=== PATIENT | female | born 1995 | race Caucasian/White ===

== ENCOUNTER 2016-04-25 21:59 | Emergency (ER) | payer OTHER ==
[~2016-04-25] VITALS: Ht 157.5 cm; Wt 95.7 kg
--- NOTE | 2016-04-25 22:52 | ED GI/GU/ABDOMINAL COMPLAINT ---
History of Present Illness General Chief Complaint: General Adult Stated Complaint: PT IS HERE FOR STOMACH PAINS Source: patient, family Exam Limitations: no limitations Vital Signs & Intake/Output Vital Signs & Intake/Output Vital Signs Date Time Temp Pulse Resp B/P Pulse O2 O2 Flow FiO2 Ox Delivery Rate 04/26 0006 98.0 91 18 119/61 100 Room Air 04/25 2300 100 Room Air 04/25 2224 98.0 103 18 122/73 98 Room Air ED Intake and Output 04/26 0000 04/25 1200 Intake Total Output Total Balance Patient 211 lb Weight Allergies Coded Allergies: azithromycin (From ZITHROMAX Z-NALDO) (HIVES 04/25/16) Reconcile Medications Ibuprofen 800 MG TABLET 1 TAB PO Q8 PRN PAIN Ondansetron (Zofran Odt) 4 MG TAB.RAPDIS 1 TAB SL TID PRN nausea Triage Note: PT TO ED C/O MID ABDOMINAL PRASH, "FIRMNESS" WITH +N/V SINCE YESTERDAY. UNSURE OF . DENIES UTI S/S Triage Nurses Notes Reviewed? yes ? n Is pt currently ? No HPI: Patient is a 20-year-old female presents complaining of abdominal pressure and firmness. Pain is diffuse, onset yesterday. Pain is currently 7 out of 10, patient is unsure if pain worsens with eating. Patient took ibuprofen at 2 PM today with mild improvement. Patient took Tums 1-2 hours ago with mild improvement. Patient has had 3-4 episodes of diarrhea since this morning. Positive associated nausea. Last menstrual period was 04/03/2016. Patient denies sick contacts, suspicious food intake, fevers, chills, urinary symptoms. (VIKA VALERIO) Past History Travel History Traveled to [place] past 21 day No Medical History Any Pertinent Medical History? see below for history Respiratory: bronchitis Renal: UTI Musculoskeletal: clubfoot Surgical History Surgical History: clubfoot surgery Psychosocial History What is your primary language Nepali Tobacco Use: Quit >30 days ago ETOH Use: occasional use Illicit Drug Use: denies illicit drug use Family History Hx Contributory? No (VIKA VALERIO) Review of Systems Review of Systems Constitutional: Denies: chills, fever. EENTM: Reports: no symptoms. Respiratory: Denies: cough, short of breath. Cardiovascular: Denies: chest pain. GI: Reports: see HPI. Genitourinary: Denies: dysuria, frequency, hematuria. Musculoskeletal: Denies: back pain. Skin: Reports: no symptoms. Neurological/Psychological: Reports: no symptoms. Hematologic/Endocrine: Reports: no symptoms. Immunologic/Allergic: Reports: no symptoms. (VIKA VALERIO) Physical Exam Physical Exam General Appearance: well developed/nourished, alert, awake Head: atraumatic, normal appearance Eyes: Bilateral: normal appearance, PERRL, EOMI. Ears, Nose, Throat, Mouth: hearing grossly normal, moist mucous membrane Neck: normal inspection, supple, full range of motion Respiratory: normal breath sounds, chest non-tender, no respiratory distress, lungs clear Cardiovascular: regular rate/rhythm Gastrointestinal: normal bowel sounds, soft, mild diffuse abdominal tenderness. Negative Castillo's sign, negative McBurney's point tenderness, negative psoas or obturator sign Back: normal inspection, normal range of motion Extremities: normal range of motion, evidence of injury Neurologic/Psych: no motor/sensory deficits, awake, alert, oriented x 3, normal gait, normal mood/affect Skin: intact, normal color, warm/dry Core Measures ACS in differential dx? No Severe Sepsis Present: No Septic Shock Present: No (VIKA VALERIO) Progress Differential Diagnosis: appendicitis, biliary colic, bowel obstruction, cholecystitis, diverticulitis, ectopic , endometritis, gastritis, hepatitis, hernia, inflamm bowel dis, intrauterine , kidney stone, ovarian cyst, ovarian torsion, pancreatitis, peptic ulcer, PUD/GERD, perforated viscous, SBO, UTI/pyelo Plan of Care: Orders Procedure Date/time Status LIPASE 04/25 2249 Complete COMPREHENSIVE METABOLIC PANEL 04/25 2249 Complete CBC WITHOUT DIFFERENTIAL 04/25 2249 Complete AMYLASE 04/25 2249 Complete URINE 04/25 2226 Complete URINALYSIS 04/25 2226 Complete Laboratory Tests 04/25/16 2315: Anion Gap 10, Estimated GFR > 60, BUN/Creatinine Ratio 13.3, Glucose 80, Calcium 9.3, Total Bilirubin 0.7, AST 40 H, ALT 53 H, Alkaline Phosphatase 49, Total Protein 7.5, Albumin 4.2, Globulin 3.3, Albumin/Globulin Ratio 1.3, Amylase < 30 L, Lipase 42, CBC w Diff NO MAN DIFF REQ, RBC 4.84, MCV 86.1, MCH 29.2, RDW 12.9, MPV 9.1, Gran % 74.8, Lymphocytes % 17.2 L, Monocytes % 7.1, Eosinophils % 0.7, Basophils % 0.2, Absolute Granulocytes 7.2 H, Absolute Lymphocytes 1.6, Absolute Monocytes 0.7 H, Absolute Eosinophils 0.1, Absolute Basophils 0, PUBS MCHC 33.8 04/25/16 2252: Urine Color YEL, Urine Clarity HAZY H, Urine pH 6.5, Ur Specific [place] 1.020, Urine Protein TRACE H, Urine Ketones TRACE H, Urine Nitrite NEG, Urine Bilirubin NEG, Urine Urobilinogen 4.0 H, Ur Leukocyte Esterase NEG, Ur Microscopic SEDIMENT EXAMINED, Urine RBC FEW H, Urine WBC RARE, Ur Epithelial Cells MANY H, Urine Mucus MOD H, Urine Hemoglobin NEG, Urine Glucose NEG, Urine Test NEGATIVE 04/25/2016 11:49:48 PM: Nausea and abdominal pain significantly improved. Patient tolerating oral fluids appropriately. Abdomen reexamined, nontender throughout. Negative Castillo sign, negative McBurney's point tenderness. Abdominal imaging deferred secondary to exam and work-up (VIKA VALERIO) Initial ED EKG: none (VIKA VALERIO) Departure Departure Time of Disposition: 2349 Disposition: HOME OR SELF CARE Condition: Stable Clinical Impression Primary Impression: Abdominal pain Qualifiers: Abdominal location: generalized Qualified Code: R10.84 - Generalized abdominal pain Referrals: UNKNOWN (PCP/Family) Additional Instructions: Follow-up with her primary care doctor if no improvement by Thursday. Return to the emergency department if you develop fevers, pain localizes to the right lower abdomen, unable to stay hydrated, or worsening of symptoms. Departure Forms: Customer Survey General Discharge Information Prescriptions: Current Visit Scripts Ondansetron (Zofran Odt) 1 TAB SL TID PRN nausea #10 TAB Ibuprofen 1 TAB PO Q8 PRN PAIN #20 TAB (VIKA VALERIO) PA/TURNING MACHINE OPERATOR Co-Sign Statement Statement: ED Attending supervision documentation- [] I saw and evaluated the patient. I have also reviewed all the pertinent lab results and diagnostic results. I agree with the findings and the plan of care as documented in the PA's/TURNING MACHINE OPERATOR's documentation. [X] I have reviewed the ED Record and agree with the PA's/TURNING MACHINE OPERATOR's documentation. [] Additions or exceptions (if any) to the PAs/TURNING MACHINE OPERATOR's note and plan are summarized below: [] (KARUNA SR,DARLING Santiago)
[2016-04-25 23:29] LABS: ABSOLUTE BASOPHIL COUNT 0 /CUMM (0.0-0.2); ABSOLUTE EOSINOPHIL COUNT 0.1 /CUMM (0.0-0.7); ABSOLUTE GRANULOCYTE CT 7.2 /CUMM (1.4-6.5); ABSOLUTE LYMPH COUNT 1.6 /CUMM (1.2-3.4); ABSOLUTE MONOCYTE COUNT 0.7 /CUMM (0.10-0.60); BASOPHIL % 0.2 % (0.0-2.0); EOSINOPHIL % 0.7 % (0-5); GRANULOCYTE % 74.8 % (42.2-75.2); HEMATOCRIT 41.7 % (37-47); MEAN CORPUSCULAR HGB 29.2 PG (27.0-31.0); MEAN CORPUSCULAR HGB CONC 33.8 G/DL (33.0-37.0); MEAN CORPUSCULAR VOLUME 86.1 FL (81.0-99.0); MEAN PLATELET VOLUME 9.1 FL (7.4-10.4); PLATELET COUNT 189 /CUMM (130-400); RBC DISTRIBUTION WIDTH 12.9 % (11.5-14.5); RED BLOOD CELL CT 4.84 /CUMM (4.20-5.40); WHITE BLOOD CELL COUNT 9.6 /CUMM (4.8-10.8)
[2016-04-25] MEDS ORDERED: ZOFRAN ODT4 M1 SL (23:51)
[2016-04-25] MEDS ORDERED: IBUPROFEN800 M1 PO (23:52)
[2016-04-26 00:06] VITALS: BP 119/61
== END 2016-04-26 00:07 ==
LOC: ERH 21:59
PROVIDERS: Physician Assistant
DX: R10.84 Generalized abdominal pain (principal)
CPT/HCPCS: 81001; 81025; 96374; 96375; J1885; J2405